=== PATIENT | male | born 1960 | race Two or more races ===

== ENCOUNTER 2016-08-11 20:39 | Emergency (ER) | payer OTHER ==
[~2016-08-11] VITALS: Ht 180.3 cm; Wt 99.3 kg
[2016-08-11 21:00] VITALS: BP 162/85
[2016-08-11] MEDS ORDERED: ACETAMINOPHEN 500 MG TAB PO ONE ×2 (21:15→21:30)
[2016-08-12] MEDS ORDERED: ONDANSETRON HCL 4 MG/2 ML VIAL IM ONE (00:30)
[2016-08-12] MEDS ORDERED: HYDROmorphone HCL 2 MG/ML VL IM ONE (00:30)
== END 2016-08-12 01:35 | disposition home or self-care (01) ==
LOC: ER 20:47
DX: S13.9XXA Sprain of joints and ligaments of unspecified parts of neck, initial encounter (principal); S29.012A Strain of muscle and tendon of back wall of thorax, initial encounter; S80.01XA Contusion of right knee, initial encounter; S40.011A Contusion of right shoulder, initial encounter; R51 Headache; V43.52XA Car driver injured in collision with other type car in traffic accident, initial encounter; Y93.89 Activity, other specified; Y92.89 Other specified places as the place of occurrence of the external cause; Y99.8 Other external cause status
CPT/HCPCS: 70450; 72125; 72128; 72131; 73030; 96372; 99284; J1170; J2405